=== PATIENT | female | born 1995 | race Caucasian/White ===

== ENCOUNTER 2023-03-27 20:17 | Emergency (ER) | payer BC | END 2023-03-27 21:26 | disposition home or self-care (01) | LOC: ED 20:17 | DX: N39.0 Urinary tract infection, site not specified (principal); Z79.899 Other long term (current) drug therapy; Z79.890 Hormone replacement therapy ==

== ENCOUNTER 2025-04-06 18:03 | Emergency (ER) | payer OTHER ==
[~2025-04-06] VITALS: Ht 188 cm; Wt 183.3 kg
[~2025-04-06 18:03] MED LIST: BUPROPION XL300 MG PO; ESTRADIOL2 MG; GABAPENTIN100 MG PO; MACROBID 100 M100 MG PO; PROGESTERONE100 MG PO; VITAMIN D-40010 MCG
[2025-04-06 20:38] VITALS: BP 158/92
--- NOTE | 2025-04-06 22:03 | EKG ---
[facility] [address] [facility] [place] [address] Signed Normal sinus rhythm Normal ECG No previous ECGs available Confirmed by Kingsley Holman MD () on 04/06/2025 10:03:38 PM Electronically Signed By: KINGSLEY HOLMAN MD 04/06/252202 PATIENT NAME: MADISON PARKIH Electrocardiogram DATE OF : [birth year] PHYSICIAN: KINGSLEY HOLMAN MD REPORT #: [id number] REPORT IS CONFIDENTIAL AND NOT TO BE RELEASED WITHOUT AUTHORIZATION
== END 2025-04-06 20:38 | disposition left against medical advice (07) ==
LOC: ED 18:03
DX: R07.9 Chest pain, unspecified (principal); M54.9 Dorsalgia, unspecified; R06.02 Shortness of breath; Z53.21 Procedure and treatment not carried out due to patient leaving prior to being seen by health care provider
CPT/HCPCS: 93005; 93010